=== PATIENT | female | born 1955 | race Caucasian/White ===

== ENCOUNTER 2016-07-16 17:34 | Emergency (ER) | payer SELFPAY ==
[~2016-07-16] VITALS: Ht 170.2 cm; Wt 68.0 kg
[2016-07-16 17:41] VITALS: BP 122/76
[2016-07-16] MEDS ORDERED: HYDROcodone/APAP 5/325 MG 1 TAB TAB PO ONE (19:15)
[2016-07-16] MEDS ORDERED: KETOROLAC 30 MG/ML VIAL IM ONE (19:15)
--- NOTE | 2016-07-16 19:23 | NUR ---
Patient ambulated to bed 3. RN evaluating patient at bedside.
--- NOTE | 2016-07-16 19:44 | NUR ---
61/M BIB [facility] C/O FALL ON RIGHT SIDE. PT STATES FALL AROUND 1700 ON TILE FLOOR, DENIES HITTING THE HEAD, NO LOC OR KO. AAOx 4, PERRLA, BREATHING EVEN AND EFFORTLESS. ERMD NOTIFIED ABOUT PT STATUS.
--- NOTE | 2016-07-16 19:47 | NUR ---
Patient being evaluated by physician at bedside.
[2016-07-16 20:24] VITALS: BP 122/76
--- NOTE | 2016-07-16 20:26 | NUR ---
Patient discharged with v/s stable. Written and verbal after care instructions given and explained. Patient alert, oriented and verbalized understanding of instructions. Ambulatory with steady gait. All questions addressed prior to discharge. ID band removed. Patient advised to follow up with PMD. Rx of NAPROSYN 500MG AND NORCO 5/325MG given. Patient educated on indication of medication including possible reaction and side effects. Opportunity to ask questions provided and answered.
== END 2016-07-16 20:25 | disposition home or self-care (01) ==
LOC: MED 17:34
DX: S42.211A Unspecified displaced fracture of surgical neck of right humerus, initial encounter for closed fracture (principal); W18.30XA Fall on same level, unspecified, initial encounter; Y93.89 Activity, other specified; Y92.89 Other specified places as the place of occurrence of the external cause; Y99.8 Other external cause status
CPT/HCPCS: 73030; 73080; 96372; 99284; J1885